=== PATIENT | female | born 1960 | race American Indian/Alaskan Native ===

== ENCOUNTER 2016-08-01 15:49 | Outpatient (CLI) | payer BC ==
--- NOTE | 2016-08-02 09:15 | Mammography Report ---
BILATERAL MAMMOGRAM with CAD: HISTORY: Cancer screening. Comparison study is dated July 27, 2015. FINDINGS: There are scattered fibroglandular densities (approximately 25%-50% glandular). No mass, distortion, suspicious calcification, or skin change is seen. IMPRESSION: Negative mammogram. There is no mammographic evidence of malignancy. RECOMMENDATION: Follow-up per ACS guidelines. BI-RADS CATEGORY: 1 = Negative ACR BI-RADS MAMMOGRAPHIC CODES: 0 = Needs additional imaging evaluation; 1 = Negative; 2 = Benign; 3 = Probably benign; 4 = Suspicious; 5 = Malignant; 6 = Known biopsy-proven malignancy COMMENT: 1. Dense breast tissue, i.e., adenosis, fibrocystic changes, etc., may obscure an underlying neoplasm. 2. Approximately 10% of cancers are not detected with mammography. 3. A negative mammography report should not delay biopsy if a clinically suspicious mass is present. COMMENT: Patient follow-up letters are generated in [employer].
== END 2016-08-01 15:50 | disposition home or self-care (01) ==
LOC: SPVWC 15:49
PROVIDERS: ATTEND Family Medicine
DX: Z12.31 Encounter for screening mammogram for malignant neoplasm of breast (principal)
CPT/HCPCS: 77067; G0202

== ENCOUNTER 2020-07-03 14:57 | Outpatient (CLI) | payer BC ==
--- NOTE | 2020-07-03 17:37 | Mammography Report ---
DIGITAL SCREENING MAMMOGRAM, 07/03/2020 CLINICAL INFORMATION / INDICATION: Routine screening mammography. SCREENING MAMMO Z12.31 TECHNIQUE: Digital bilateral 2D mammography was obtained in the craniocaudal and mediolateral obliqu e projections. COMPARISON: Prior mammogram 08/01/2016 FINDINGS: Breast Density: There are scattered areas of fibroglandular density. No dominant mass, suspicious calcifications, or architectural distortion in either breast. There has been no significant change compared with the prior examination. IMPRESSION: No mammographic evidence of malignancy. Follow up recommendation: Routine yearly BI-RADS Category 1: Negative. A "normal" or negative report should not discourage follow up or biopsy of a clinically significant f inding. A written summary of these findings will be mailed to the patient. The patient will be entered into a mammography reporting system which will generate a reminder letter for the patient's next appointmen t at the appropriate interval. The [employer] recommends yearly mammograms starting at age 40 and continuing as l julio cesar as a woman is in good health. Breast MRI is recommended for women with an approximate 20-25% or greater lifetime risk of breast cancer, including women with a strong family history of breast or ova jet cancer or who have been treated for Hodgkin's disease. Signer Name: Karena Cobian MD Signed: 07/03/2020 5:33 PM Workstation Name: [employer]
== END 2020-07-03 14:58 | disposition home or self-care (01) ==
LOC: SPVWC 14:57
PROVIDERS: ATTEND Family Medicine
DX: Z12.31 Encounter for screening mammogram for malignant neoplasm of breast (principal)
CPT/HCPCS: 77067